=== PATIENT | female | born 1985 | race Caucasian/White ===

== ENCOUNTER 2019-10-06 13:58 | Emergency (ER) | payer MEDICAID ==
[~2019-10-06] VITALS: Ht 170.2 cm; Wt 113.4 kg
[2019-10-06 14:05] VITALS: Ht 170.2 cm; Wt 113.4 kg
[2019-10-06 15:36] VITALS: BP 136/93
== END 2019-10-06 15:40 | disposition home or self-care (01) ==
LOC: ED 13:58
DX: T14.8XXA Other injury of unspecified body region, initial encounter (principal); L29.9 Pruritus, unspecified; Z98.890 Other specified postprocedural states; Z88.2 Allergy status to sulfonamides; W57.XXXA Bitten or stung by nonvenomous insect and other nonvenomous arthropods, initial encounter; Y93.89 Activity, other specified; Y92.89 Other specified places as the place of occurrence of the external cause; Y99.8 Other external cause status

== ENCOUNTER 2019-10-18 09:55 | Emergency (ER) | payer MEDICAID ==
[~2019-10-18] VITALS: Ht 170.2 cm; Wt 111.2 kg
[2019-10-18 10:00] VITALS: Ht 170.2 cm; Wt 111.2 kg
[2019-10-18 11:27] VITALS: BP 113/62
== END 2019-10-18 11:27 | disposition home or self-care (01) ==
LOC: ED 09:55
DX: R51 Headache (principal); Z88.2 Allergy status to sulfonamides
CPT/HCPCS: J1885; J2765; J7030